=== PATIENT | female | born 1975 | race Caucasian/White ===

== ENCOUNTER 2020-05-19 16:04 | Emergency (ER) | payer OTHER, SELFPAY ==
--- NOTE | ~2020-05-19 | XR_ITS ---
EXAMINATION: XR hip LT min 2V DATE: 05/19/2020 16:44 INDICATION: Left hip pain. TECHNIQUE: 3 views of left hip were obtained. COMPARISON: None. FINDINGS: Bone alignment is normal. No fracture. There is mild left hip osteoarthritis. IMPRESSION: 1. Mild left hip osteoarthritis. Reviewed, dictated and finalized at location A. [employer]NAGER
--- NOTE | 2020-05-19 16:11 | ED.GENADULT ---
HPI - General Adult General Chief complaint: Extremity Injury, Lower Stated complaint: left hip pain Time Seen by Provider: 05/19/20 16:11 Source: patient Mode of arrival: ambulatory Limitations: no limitations History of Present Illness HPI narrative: 44-year-old female patient presents to the [facility] with complaints of left hip pain. Patient states she fell from some stairs about 6 days ago onto carpeted stairs landing on some [place]. Patient was seen in the emergency department the day after this. Patient did have a broken left wrist. Patient states that she did not complain of any hip pain at that time even though she did have some hip pain but her wrist was hurting worse. Patient states she did follow-up with Ortho in regards to her wrist fracture. Patient states that the hip pain has continued to worsen throughout the week. Patient states she is able to ambulate denies any new numbness or tingling to the lower extremity. Patient states that she does have some home oxycodone as well as muscle relaxers that she has been taking that has been helping with the hip pain. Denies any loss of bowel or bladder control. Related Data Home Medications Medication Instructions Recorded Confirmed amitriptyline 75 mg PO DAILY 05/19/20 05/19/20 amlodipine 10 mg PO DAILY 05/19/20 05/19/20 atorvastatin 40 mg PO DAILY 05/19/20 05/19/20 buspirone 10 mg PO DAILY 05/19/20 05/19/20 cyclobenzaprine 10 mg PO DAILY 05/19/20 05/19/20 duloxetine 60 mg PO DAILY 05/19/20 05/19/20 furosemide 20 mg PO DAILY 05/19/20 05/19/20 gabapentin enacarbil [Horizant] 600 mg PO DAILY 05/19/20 05/19/20 isosorbide mononitrate mg PO 05/19/20 lisinopril 05/19/20 metformin mg 05/19/20 metoclopramide HCl 05/19/20 metoprolol succinate PO 05/19/20 naloxegol [Movantik] mg PO 05/19/20 naloxone [Narcan] INTRANASAL 05/19/20 omeprazole 05/19/20 oxycodone-acetaminophen 05/19/20 pantoprazole PO 05/19/20 promethazine 05/19/20 quetiapine 05/19/20 sertraline mg 05/19/20 sitagliptin [Januvia] mg 05/19/20 sucralfate 05/19/20 trazodone 05/19/20 Allergies Allergy/AdvReac Type Severity Reaction Status Date / Time clindamycin Allergy Unknown Swelling Verified 03/04/17 19:18 in throat Penicillins Allergy Unknown Swelling Verified 03/04/17 19:18 tongue tramadol Allergy Unknown Swelling Verified 03/04/17 19:18 in throat vancomycin Allergy Swelling Verified 05/19/20 16:21 Review of Systems Review of Systems: Narrative: CONSTITUTIONAL: Denies fever, chills, or sweats. EYES: Denies visual changes, redness, or discharge. ENT: Denies rhinorrhea, congestion, sore throat, or otalgia. CARDIOVASCULAR: Denies chest pain, palpitations, or edema. RESPIRATORY: Denies cough or dyspnea. GASTROINTESTINAL: Denies abdominal pain, nausea, vomiting, or diarrhea. GENITOURINARY: Denies dysuria or hematuria. SKIN: Denies rash or itching. MUSCULOSKELETAL: Denies back pain, joint pain, or myalgia. Positive left hip pain NEUROLOGIC: Denies headache, numbness, or weakness. PSYCHIATRIC: Denies anxiety or depression. [facility] Past Medical History Medical History (Updated 05/19/20 @ 16:56 by MATT Alanis) Anxiety Coronary artery disease Diabetes Ectopic Hypercholesterolemia Hypertension Musculoskeletal disorder Left wrist tendinitis and stimulator in back Peripheral neuropathy Surgical History Surgical History (Updated 05/19/20 @ 16:14 by MATT Alanis) H/O cardiac catheterization H/O Spinal surgery H/O tubal ligation History of orthopedic surgery Bilateral feet Social History Social History Gender identity (if verbalized by the patient): Female Comments At the time of my signature I agree with nursing past medical history, surgical, social, and family history. There is no relevant family history pertinent to the presenting complaint. Exam Narrative: Exam Na
[2020-05-19 16:25] VITALS: BP 128/75; PULSE 86; RESP 18; TEMP 36.9; O2SAT 99
[2020-05-19 17:08] VITALS: BP 128/75; PULSE 86; RESP 18; TEMP 36.9; O2SAT 99
== END 2020-05-19 17:01 | disposition home or self-care (01) ==
PROVIDERS: Emergency Provider Nurse Practitioner Family; PCP Internal Medicine
DX: M62.838 Other muscle spasm (principal); I25.10 Atherosclerotic heart disease of native coronary artery without angina pectoris; E78.00 Pure hypercholesterolemia, unspecified; I10 Essential (primary) hypertension; E11.42 Type 2 diabetes mellitus with diabetic polyneuropathy; F41.9 Anxiety disorder, unspecified
CPT/HCPCS: 73502; 99203; G0463

== ENCOUNTER 2025-06-08 18:22 | Emergency (ER) | payer OTHER, MEDICARE, SELFPAY ==
--- NOTE | ~2025-06-08 | XR_ITS ---
XR chest 2V HOSTORY: SOB, cough for 4 wks COMPARISON:[ None] FINDINGS: Frontal and lateral views of the chest were obtained. The lungs are clear. The heart size is normal in size. Pulmonary vasculature is unremarkable. Osseous structures are intact. IMPRESSION: No acute lung findings.] [ ] Reviewed, dictated and finalized at location S. OR [employer]
[2025-06-08 18:32] VITALS: BP 151/68; PULSE 82; RESP 20; TEMP 36.2; O2SAT 93
--- NOTE | 2025-06-08 19:05 | ED.URI ---
HPI - URI/Sore Throat General Chief Complaint: Upper Respiratory Infection Stated Complaint: cough/short of breath Time Seen by Provider: 06/08/25 19:05 Source: patient Mode of arrival: ambulatory Limitations: no limitations History of Present Illness HPI Narrative: 50 yo F presents with c/o cough for 4 wks. Has not taken any OTC meds to treat cough. Recently has felt SOB with exertion. previous smoker for 20 yrs. Afebrile. all systems reviewed and negative except as noted above. Related Data Home Medications ?Medication ?Instructions ?Recorded ?Confirmed ?Last Taken ?Type amitriptyline 75 mg tablet 75 mg PO DAILY 05/19/20 05/19/20 Unknown History amlodipine 10 mg tablet 10 mg PO DAILY 05/19/20 05/19/20 05/19/20 History atorvastatin 40 mg tablet 40 mg PO DAILY 05/19/20 05/19/20 Unknown History buspirone 10 mg tablet 10 mg PO DAILY 05/19/20 05/19/20 Unknown History cyclobenzaprine 10 mg tablet 10 mg PO DAILY 05/19/20 05/19/20 Unknown History duloxetine 60 mg capsule,delayed 60 mg PO DAILY 05/19/20 05/19/20 Unknown History release furosemide 20 mg tablet 20 mg PO DAILY 05/19/20 05/19/20 Unknown History gabapentin enacarbil 600 mg 600 mg PO DAILY 05/19/20 05/19/20 Unknown History tablet,extended release (Horizant ER) isosorbide mononitrate 30 mg 30 mg PO DAILY 05/19/20 05/19/20 Unknown History tablet,extended release 24 hr lisinopril 10 mg tablet 10 mg PO DAILY 05/19/20 05/19/20 Unknown History metformin 1,000 mg tablet 1,000 mg PO DAILY 05/19/20 05/19/20 Unknown History metoclopramide HCl 5 mg tablet 5 mg PO DAILY 05/19/20 05/19/20 Unknown History metoprolol succinate 100 mg 100 mg PO DAILY 05/19/20 05/19/20 Unknown History tablet,extended release 24 hr naloxegol 25 mg tablet (Movantik) 25 mg PO DAILY 05/19/20 05/19/20 Unknown History naloxone 4 mg/actuation nasal 4 mg intranasal PRN 05/19/20 05/19/20 Unknown History spray (Narcan) omeprazole 40 mg capsule,delayed 40 mg PO DAILY 05/19/20 05/19/20 Unknown History release oxycodone-acetaminophen 5 mg-325 5,325 tablet PO PRN PRN Pain 05/19/20 05/19/20 Unknown History mg tablet (Scale Score 4-6) pantoprazole 40 mg tablet,delayed 40 mg PO DAILY 05/19/20 05/19/20 Unknown History release promethazine 25 mg tablet 25 mg PO DAILY 05/19/20 05/19/20 Unknown History quetiapine 50 mg tablet 50 mg PO DAILY 05/19/20 05/19/20 Unknown History sertraline 100 mg tablet 100 mg PO DAILY 05/19/20 05/19/20 Unknown History sitagliptin phosphate 50 mg tablet 50 mg PO DAILY 05/19/20 05/19/20 Unknown History (Bijal) sucralfate 1 gram tablet 1 g PO DAILY 05/19/20 05/19/20 Unknown History trazodone 50 mg tablet 50 mg PO DAILY 05/19/20 05/19/20 Unknown History Allergies Allergy/AdvReac Type Severity Reaction Status Date / Time clindamycin Allergy Unknown Swelling Verified 06/08/25 19:05 in throat Penicillins Allergy Unknown Swelling Verified 06/08/25 19:05 tongue tramadol Allergy Unknown Swelling Verified 06/08/25 19:05 in throat vancomycin Allergy Swelling Verified 06/08/25 19:05 [facility] Past Medical History Medical History (Updated 06/08/25 @ 19:46 by Merlyn Moses APRN) Anxiety Diabetes Musculoskeletal disorder Left wrist tendinitis and stimulator in back Ectopic Hypertension Hypercholesterolemia Coronary artery disease Peripheral neuropathy Surgical History Surgical History (Updated 05/19/20 @ 16:14 by Cecy Felix APRN) H/O Spinal surgery History of orthopedic surgery Bilateral feet H/O tubal ligation H/O cardiac catheterization Social History Social History Gender identity (if verbalized by the patient): Female Comments At time of signature, agree with nursing past medical, surgical, social and family history. There is no relevant family history pertinent to the presenting complaint. Exam Narrative: GENERAL: This is a well-nourished, well-developed patient, in no apparent distress. HEAD: normocephalic, atraumatic. EYES: PERRL. Sclera clear/white. Vision is grossly intact. EARS: External ears normal, auditory canals clear and without drainage, TMs normal without perforation. Hearing grossly intact. NOSE: External nose normal with no obvious nasal discharge, nares without redness, no rhinorrhea. THROAT: Mucous membranes moist, posterior pharynx clear. NECK: Neck supple, non-tender without lymphadenopathy, masses or thyromegaly. CARDIOVASCULAR: Regular rate and rhythm without murmurs, gallops, or rubs. RESPIRATORY: Mild expiratory wheeze throughout all lung dixon. Breath sounds equal bilaterally. No rales, or rhonchi. SKIN: warm, Dry, intact with no suspicious lesions or rash, good texture and turgor. NEURO: awake, alert, and oriented to person, place and time. There were no obvious focal neurologic abnormalities. EXTREMITIES: No joint tenderness, effusion, or edema noted. Course Course Level of Care: Express Care Visit Reevaluation(s) Reevaluation #1: Lungs clear throughout all lung dixon after DuoNeb. Oxygen saturation 95% room air. Vital Signs Vital signs: Vital Signs Temperature 36.2 C L 06/08/25 18:32 Pulse Rate 82 06/08/25 18:32 Respiratory Rate 20 06/08/25 18:32 Blood Pressure 151/68 H 06/08/25 18:32 Pulse Oximetry 93 06/08/25 18:32 Oxygen Delivery Room Air 06/08/25 18:32 Temperature 36.2 C L 06/08/25 18:32 Pulse Rate 82 06/08/25 18:32 Respiratory Rate 20 06/08/25 18:32 Blood Pressure 151/68 H 06/08/25 18:32 Pulse Oximetry 93 06/08/25 18:32 Oxygen Delivery Room Air 06/08/25 18:32 Reviewed MDM MDM Narrative Medical decision making narrative: Chest x-ray negative for pneumonia. Lungs clear to auscultation after DuoNeb. 95% room air. Patient is well-appearing, nontoxic. No respiratory distress. Will treat for acute bronchitis with albuterol and prednisone. Recommend follow-up with primary care physician. Differential Diagnosis Differential Diagnosis: Differential diagnostic considerations for upper respiratory infection include upper respiratory infection, croup, otitis media, sinusitis, viral infection, bronchitis, influenza, pharyngitis, strep, uvulitis.? Imaging Data Radiologist's impression: ITS Impressions Chest X-Ray 06/08/25 19:33 IMPRESSION: No acute lung findings.] [ ] Discharge Plan Discharge Clinical Impression: Acute bronchitis Patient Disposition: Home Condition: Stable Instructions: Acute Bronchitis (ED) Additional Instructions: Your chest x-ray was negative for pneumonia. Start prednisone prescription tomorrow. Use albuterol inhaler every 4-6 hours as needed. Follow-up with your primary care physician at next available appointment. Patient Language: Ethiopian Prescriptions: New prednisone 20 mg tablet 40 mg PO DAILY 4 Days Qty: 8 0RF albuterol sulfate 90 mcg/actuation HFA aerosol inhaler 2 puff inhalation Q4-6H PRN (Reason: shortness of breath or wheezing) Qty: 8.5 0RF No Action cyclobenzaprine 10 mg tablet 10 mg PO DAILY atorvastatin 40 mg tablet 40 mg PO DAILY amitriptyline 75 mg tablet 75 mg PO DAILY isosorbide mononitrate 30 mg tablet extended release 24 hr 30 mg PO DAILY metoprolol succinate 100 mg tablet extended release 24 hr 100 mg PO DAILY metoclopramide HCl 5 mg tablet 5 mg PO DAILY amlodipine 10 mg tablet 10 mg PO DAILY metformin 1,000 mg tablet 1,000 mg PO DAILY buspirone 10 mg tablet 10 mg PO DAILY lisinopril 10 mg tablet 10 mg PO DAILY furosemide 20 mg tablet 20 mg PO DAILY duloxetine 60 mg capsule,delayed release(DR/EC) 60 mg PO DAILY Januvia 50 mg tablet 50 mg PO DAILY Horizant 600 mg tablet extended release 600 mg PO DAILY Movantik 25 mg tablet 25 mg PO DAILY trazodone 50 mg tablet 50 mg PO DAILY sucralfate 1 gram tablet 1 g PO DAILY sertraline 100 mg tablet 100 mg PO DAILY omeprazole 40 mg capsule,delayed release(DR/EC) 40 mg PO DAILY oxycodone-acetaminophen 5-325 mg tablet 5,325 tablet PO PRN PRN (Reason: Pain (Scale Score 4-6)) pantoprazole 40 mg tablet,delayed release (DR/EC) 40 mg PO DAILY promethazine 25 mg tablet 25 mg PO DAILY quetiapine 50 mg tablet 50 mg PO DAILY Narcan 4 mg/actuation spray,non-aerosol 4 mg INTRANASAL PRN Follow-up/Referrals: [place],Janet Lovett MD [Primary Care Provider, Medical] Time of Disposition: 19:46
[2025-06-08] MEDS: IPRATROPIUM 0.5 MG/ALBUTEROL SULFATE 2.5 MG (BASE) AMPUL.NEB 3 ML INHALATION (19:19)
[2025-06-08 19:50] VITALS: O2SAT 95
== END 2025-06-08 19:50 | disposition home or self-care (01) ==
PROVIDERS: Emergency Provider Nurse Practitioner Family; PCP Internal Medicine
DX: J20.9 Acute bronchitis, unspecified (principal); I10 Essential (primary) hypertension; E78.00 Pure hypercholesterolemia, unspecified; I25.10 Atherosclerotic heart disease of native coronary artery without angina pectoris; G62.9 Polyneuropathy, unspecified; E11.9 Type 2 diabetes mellitus without complications; Z79.84 Long term (current) use of oral hypoglycemic drugs; F41.9 Anxiety disorder, unspecified
CPT/HCPCS: 71046; 94640; 99213; G0463; J7512